=== PATIENT | male | born 1970 | race Asian ===

== ENCOUNTER 2022-11-07 00:31 | Emergency (ER) | payer BC, OTHER ==
[~2022-11-07] VITALS: Ht 157.5 cm; Wt 63.6 kg
[2022-11-07 00:50] VITALS: BP 180/108; PULSE 90; RESP 18; TEMP 98
[2022-11-07 01:17] VITALS: O2SAT 95
[2022-11-07] MEDS ORDERED: BACDST PO (01:37)
[2022-11-07] MEDS ORDERED: CLIN300C70 PO (01:37)
[2022-11-07] MEDS ORDERED: SULFAMETHOX W/TRIMETH(800/160MG) DS TAB PO ONE (01:45)
[2022-11-07] MEDS ORDERED: CLINDAMYCIN HCL 150 MG CAP PO ONE (01:45)
== END 2022-11-07 01:34 | disposition left against medical advice (07) ==
LOC: ER 00:36
DX: L02.01 Cutaneous abscess of face (principal); E11.65 Type 2 diabetes mellitus with hyperglycemia; I10 Essential (primary) hypertension; Z53.29 Procedure and treatment not carried out because of patient's decision for other reasons
CPT/HCPCS: 82962